=== PATIENT | male | born 1960 | race Caucasian/White ===

== ENCOUNTER 2022-09-05 15:26 | Emergency (ER) | payer MEDICARE ==
[2022-09-05] VITALS (14 sets, daily range): BP systolic 118–132; BP diastolic 84–95
[~2022-09-05] VITALS: Ht 175.3 cm; Wt 105.0 kg
[2022-09-05] MEDS ORDERED: METHOCARBAMOL500 MG PO (18:54)
[2022-09-05] MEDS ORDERED: DOXYCYCLINE HY100 MG PO (18:54)
[2022-09-05] MEDS ORDERED: PERCOCET 10/31 COMBO PO ×2 (18:54→19:30)
== END 2022-09-05 19:07 | disposition home or self-care (01) ==
LOC: ED 15:26
DX: S20.212A Contusion of left front wall of thorax, initial encounter (principal); S00.81XA Abrasion of other part of head, initial encounter; S80.211A Abrasion, right knee, initial encounter; W01.0XXA Fall on same level from slipping, tripping and stumbling without subsequent striking against object, initial encounter; Y93.89 Activity, other specified; Y92.830 Public park as the place of occurrence of the external cause

== ENCOUNTER 2022-09-12 21:09 | Emergency (ER) | payer MEDICARE ==
[~2022-09-12] VITALS: Ht 175.3 cm; Wt 108.0 kg
[~2022-09-12 21:09] MED LIST: DOXYCYCLINE HY100 MG PO; METHOCARBAMOL500 MG PO; PERCOCET 10/31 COMBO PO
[2022-09-12 21:23] VITALS: BP 125/80
[2022-09-12 21:30] VITALS: BP 112/87
[2022-09-12 22:00] VITALS: BP 130/98
[2022-09-12] MEDS ORDERED: BUPRENORPHIN8 MG SL (22:08)
[2022-09-12] MEDS ORDERED: VISTARIL PO (22:10)
[2022-09-12] MEDS ORDERED: LORTAB 7.57.5 MG PO (22:23)
[2022-09-12 22:31] VITALS: BP 132/103
[2022-09-12 22:46] VITALS: BP 122/78
== END 2022-09-12 22:46 | disposition home or self-care (01) ==
LOC: ED 21:09
DX: S22.32XA Fracture of one rib, left side, initial encounter for closed fracture (principal); W01.0XXA Fall on same level from slipping, tripping and stumbling without subsequent striking against object, initial encounter